=== PATIENT | female | born 1945 | race Caucasian/White ===

== ENCOUNTER 2017-06-20 09:40 | Outpatient (CLI) | payer MEDICARE, OTHER | END 2017-06-20 09:41 | LOC: LAB.WCP 09:40 | PROVIDERS: ATTEND Family Medicine | DX: N39.0 Urinary tract infection, site not specified (principal) | CPT/HCPCS: 87086 ==

== ENCOUNTER 2017-12-27 07:01 | Outpatient (CLI) | payer MEDICARE, OTHER ==
[2017-12-27 07:30] LABS: BASOPHILS % (AUTO) 0.2 %; EOSINOPHILS # (AUTO) 0.1 10^3/uL (0.0-0.7); EOSINOPHILS % (AUTO) 3.5 %; HGB - HEMOGLOBIN 13.7 g/dL (12.0-16.0); LYMPHOCYTES # (AUTO) 0.9 10^3/uL (1.5-3.5); LYMPHOCYTES % (AUTO) 26.4 %; MEAN CORPUSCULAR HEMOGLOBIN 30.9 pg (27.0-31.0); MEAN CORPUSCULAR HGB CONC 32.7 g/dL (32.0-36.0); MEAN CORPUSCULAR VOLUME 94.3 fL (81.0-99.0); MEAN PLATELET VOLUME 8.4 fL (7.9-10.8); MONOCYTES # (AUTO) 0.4 10^3/uL (0.0-1.0); NEUTROPHILS % (AUTO) 58.9 %; PLT - PLATELET COUNT 215 10^3/uL (130-450); RED BLOOD COUNT 4.44 10^6/uL (4.20-5.40); RED CELL DISTRIBUTION WIDTH 12.7 % (12.0-15.0); WHITE BLOOD COUNT 3.4 x10^3/uL (4.8-10.8)
[2017-12-27 07:49] LABS: ALBUMIN/GLOBULIN RATIO 1.4 (1.0-2.2); ALKALINE PHOSPHATASE 52 IU/L (42-121); ALT ALANINE AMINOTRANSFERASE 21 IU/L (10-60); AST ASPARTATE AMINOTRANSFERASE 25 IU/L (10-42); BILIRUBIN,TOTAL 1.2 mg/dL (0.2-1.0); BUN - BLOOD UREA NITROGEN 19 mg/dL (6-20); CALCIUM 8.9 mg/dL (8.5-10.3); CARBON DIOXIDE - CO2 26 mmol/L (21-32); CHLORIDE 104 mmol/L (101-111); CHOL/HDL RATIO 2.7 (<4.4); CHOLESTEROL 196 mg/dL; CREATININE 1.1 mg/dL (0.4-1.0); GFR - MDRD 49 (>89); GLUCOSE 95 mg/dL (70-100); HDL CHOLESTEROL 72 mg/dL; LDL CHOLESTEROL,CALCULATED 114 mg/dL; LDL/HDL RATIO 1.6 (<4.4); SODIUM 136 mmol/L (135-145); TOTAL PROTEIN 6.8 g/dL (6.7-8.2); VLDL CHOLESTEROL 10 mg/dL
== END 2017-12-27 07:02 | disposition home or self-care (01) ==
LOC: LAB 07:01
PROVIDERS: ATTEND Family Medicine
DX: E78.5 Hyperlipidemia, unspecified (principal); R03.0 Elevated blood-pressure reading, without diagnosis of hypertension
CPT/HCPCS: 36415; 80053; 80061; 83721; 85025

== ENCOUNTER 2018-01-14 08:35 | Outpatient (CLI) | payer MEDICARE, OTHER ==
--- NOTE | 2018-01-15 17:20 | Mammography Report ---
DIGITAL SCREENING MAMMOGRAM: 01/14/2018 CLINICAL INDICATION: A 72-year-old for screening. COMPARISON: 08/2014, 08/2012, 11/2006. TECHNIQUE: Routine CC and MLO projections were obtained of the breasts. FINDINGS: The breasts again demonstrate heterogeneously dense fibroglandular parenchyma bilaterally. A few punctate, typically benign calcifications are present. No suspicious masses, clustered microcalcifications, or regions of architectural distortion are identified. IMPRESSION: BENIGN FINDINGS. RECOMMENDATION: Routine annual screening unless otherwise clinically indicated. BIRADS category 2 benign findings. STANDARD QUALIFYING STATEMENTS 1. This examination was reviewed with the aid of Computed-Aided Detection (CAD). 2. A negative or benign imaging report should not delay biopsy if clinically suspicious findings are present. Consider surgical consultation if warranted. More than 5% of cancers are not identified by imaging. 3. Dense breasts may obscure an underlying neoplasm. TD: 01/15/2018 17:19
== END 2018-01-14 08:36 | disposition home or self-care (01) ==
LOC: DI 08:35
PROVIDERS: ATTEND Family Medicine
DX: Z12.31 Encounter for screening mammogram for malignant neoplasm of breast (principal)
CPT/HCPCS: 77067

== ENCOUNTER 2018-01-14 08:37 | Outpatient (CLI) | payer MEDICARE, OTHER ==
--- NOTE | 2018-01-15 13:00 | DEXA Report ---
DEXA SCAN: 01/14/2018 CLINICAL INDICATION: Postmenopausal. TECHNIQUE: Dual energy x-ray absorptiometry (DXA) was performed on a [employer] system. Regions measured are the AP spine, femoral neck, and, if needed, forearm. COMPARISON: None. In accordance with the International Society for Clinical Densitometry (ISCD) guidelines, data from previous exams may be reanalyzed using current recommendations and techniques. This is done to allow a more accurate basis for comparison with the current study. FINDINGS Data for the lumbar spine is as follows: REGION BMD (g/cm/cm) T-SCORE Z-SCORE L1 0.894 -2.0 0.0 L2 0.913 -2.4 -0.4 L3 1.033 -1.4 0.6 L4 1.050 -1.3 0.7 L1-L4 0.980 -1.7 0.3 NOTE: All evaluable vertebrae are used for classification. Data for the hip is as follows: REGION BMD (g/cm/cm) T-SCORE Z-SCORE Neck 0.782 -1.8 0.0 TOTAL 0.763 -1.9 -0.3 NOTE: The femoral neck or total proximal femur, whichever is lowest, is used for classification. IMPRESSION WHO CLASSIFICATION BASED ON THE INTERNATIONAL REFERENCE STANDARD IS OSTEOPENIA. FRACTURE RISK IS INCREASED. RECOMMENDATION: Patients with diagnosis of osteoporosis or osteopenia should have regular bone mineral density assessment. For those eligible for Medicare, routine testing is allowed once every 2 years. Testing frequency can be increased for patients who have rapidly progressing disease or for those who are receiving medical therapy to restore bone mass. COMMENT World Health Organization (WHO) definitions for osteoporosis and osteopenia: NORMAL BMD: T-score at 1.0 or higher, fracture risk is low. OSTEOPENIA BMD: T-score between 1.0 and -2.5, fracture risk is increased. OSTEOPOROSIS BMD: T-score at 2.5 or lower, fracture risk high. National Osteoporosis Foundation recommends: 1. Obtain adequate dietary calcium (at least 1200 mg per day) and vitamin D (400 -800 international units per day). 2. Participate, as appropriate, in regular weightbearing and muscle- strengthening exercise. 3. Avoid tobacco use and reduce alcohol and caffeine intake. 4. For more detailed information see the website at www.NOF.org. TD: 01/14/2018 11:36 [email or web address]
== END 2018-01-14 08:38 | disposition home or self-care (01) ==
LOC: DI 08:37
PROVIDERS: ATTEND Family Medicine
DX: M85.89 Other specified disorders of bone density and structure, multiple sites (principal)
CPT/HCPCS: 77080

== ENCOUNTER 2018-03-26 09:44 | Day surgery (SDC) | payer MEDICARE, OTHER ==
[2018-03-26] MEDS ORDERED: LACTATED RINGERS 1,000 ML IV ONE (09:55)
[2018-03-26] MEDS ORDERED: MIDAZOLAM 2 MG/2 ML VIAL IVP ONE (10:41)
[2018-03-26] MEDS ORDERED: fentaNYL 250 MCG/5 ML VIAL IVP ONE (10:41)
[2018-03-26 11:39] VITALS: BP 94/49
== END 2018-03-26 09:45 | disposition home or self-care (01) ==
LOC: SDS 09:44
PROVIDERS: ATTEND Surgery
PROC: 0DBN8ZX Excision of Sigmoid Colon, Via Natural or Artificial Opening Endoscopic, Diagnostic (ICD-10-PCS; principal; 2018-03-26 10:45)
DX: Z12.11 Encounter for screening for malignant neoplasm of colon (principal); D12.5 Benign neoplasm of sigmoid colon
CPT/HCPCS: 45380; J3010; J7120; 88305

== ENCOUNTER 2018-08-28 14:12 | Outpatient (CLI) | payer MEDICARE, OTHER ==
--- NOTE | 2018-08-28 16:41 | MRI Report ---
Reason: HIP JOINT PAIN, LEFT Procedure Date: 08/28/2018 Accession Number: [id number] / [id number] Procedure: MRI - Hip LT W/O CPT Code: FULL RESULT: EXAM: LEFT HIP MRI WITHOUT CONTRAST EXAM DATE: 08/28/2018 02:36 PM. CLINICAL HISTORY: Hip joint pain, left. COMPARISON: HIP 2 VIEW LT 08/12/2018 11:38 AM. TECHNIQUE: Multiplanar, multisequence T1-weighted and fluid-sensitive, small angwl-jr-peai sequences of the hip and large cyvbj-hs-apgv sequences of the pelvis without contrast. Other: None. FINDINGS: Bones and articular surfaces: Moderate cartilage thinning and fissuring at the anterosuperior aspect of the left hip joint with acetabular subchondral edema and tiny subchondral cyst formation. Small tear and degeneration at the anterosuperior left hip labrum. Small anterosuperior paralabral cyst formation approximately 4 x 8 x 12 mm. No evidence of acute fracture. Subchondral edema and subchondral cyst formation at the anterior acetabulum. Mild degenerative change in the left greater than right sacroiliac joint. At the superior margin of the left iliac wing there is an ill-defined area of increased T2 signal measuring approximately 1.6 x 0.5 x 0.9 cm. T1 fatty marrow signal appears maintained. No additional discrete bone lesions are seen. Pubic symphysis and right hip unremarkable. Musculotendinous structures: No evidence of significance muscle tear, tendinosis or bursitis. IMPRESSION: 1. Moderate left hip osteoarthritis. 2. Tear and degeneration at the anterosuperior left hip labrum with small paralabral cyst. 3. High T2 signal lesion at the left iliac weighing approximately 1.6 x 0.5 x 0.9 cm. Nonspecific. No additional lesions are seen. In the proper clinical setting, differential considerations include metastatic lesion or myeloma. Correlate clinically. If there is concern for metastatic disease, consider whole body bone scan to evaluate for any additional lesions. [facility] MUSCULOSKELETAL RADIOLOGY SECTION
== END 2018-08-28 14:13 | disposition home or self-care (01) ==
LOC: DI 14:12
PROVIDERS: ATTEND Family Medicine
DX: M16.12 Unilateral primary osteoarthritis, left hip (principal); S73.192A Other sprain of left hip, initial encounter; M24.852 Other specific joint derangements of left hip, not elsewhere classified; M89.9 Disorder of bone, unspecified

== ENCOUNTER 2018-09-06 08:52 | Outpatient (CLI) | payer MEDICARE, OTHER ==
--- NOTE | 2018-09-07 11:20 | Nuclear Medicine Report ---
Reason: ABNORMAL MAGNETIC RESONANCE IMAGING Procedure Date: 09/06/2018 Accession Number: [id number] / [id number] Procedure: NM - Bone Whole Body CPT Code: FULL RESULT: EXAM: BONE SCAN EXAM DATE: 09/06/2018 01:41 PM. CLINICAL HISTORY: Abnormal magnetic resonance imaging. COMPARISON: None. TECHNIQUE: Following the intravenous administration of 28.8 mCi of technetium 99m MDP, flow and soft tissue phase imaging obtained through the pelvis. Next, after an appropriate delay, a whole-body scan was performed in anterior and posterior projections. Site-specific spot views of the region of interest were obtained in various projections. FINDINGS: Exam Quality: Normal overall osseous radiotracer uptake. Physiological tracer uptake in bilateral collecting systems. Skull: No focal uptake. Thorax: No focal lesions in ribs or sternum. Pelvis: No abnormal flow or soft tissue activity in the pelvis or hips. On delays, small focus of mild increased uptake anteromedial left hip, likely degenerative. Bony structures otherwise unremarkable. Spine: Moderate activity at the L3-L4 disk level. IMPRESSION: 1. Mild degenerative changes anteromedial left hip. 2. No abnormal flow or soft tissue activity in the pelvis or hips. 3. Moderate degenerative disk disease L3-L4. [facility]
== END 2018-09-06 08:53 | disposition home or self-care (01) ==
LOC: DI 08:52
PROVIDERS: ATTEND Family Medicine
DX: R93.89 Abnormal findings on diagnostic imaging of other specified body structures (principal); M51.36 Other intervertebral disc degeneration, lumbar region; M16.12 Unilateral primary osteoarthritis, left hip
CPT/HCPCS: 36415; 78306; 81599; 84155; 84165

== ENCOUNTER 2018-09-06 13:05 | Outpatient (CLI) | payer MEDICARE, OTHER ==
[2018-09-09 20:19] LABS: ALBUMIN 4.1 g/dL (3.8-4.8); ALPHA 1 GLOBULIN 0.3 g/dL (0.2-0.3); ALPHA 2 GLOBULIN 0.7 g/dL (0.5-0.9); BETA 1 GLOBULIN 0.4 g/dL (0.4-0.6); BETA 2 GLOBULIN 0.3 g/dL (0.2-0.5); GAMMA GLOBULIN 1.2 g/dL (0.8-1.7)
== END 2018-09-06 13:06 | disposition home or self-care (01) ==
LOC: LAB 13:05
PROVIDERS: ATTEND Family Medicine
DX: R93.89 Abnormal findings on diagnostic imaging of other specified body structures (principal)
CPT/HCPCS: 36415; 81599; 84155; 84165

== ENCOUNTER 2018-11-28 14:45 | Outpatient (CLI) | payer MEDICARE, OTHER ==
[2018-11-28] MEDS ORDERED: GADOBUTROL 7.5 MMOL/7.5 ML VIAL ONE (15:04)
[2018-11-28] MEDS ORDERED: GADOBUTROL 7.5 MMOL/7.5 ML VIAL IVP ONE ×2 (16:25)
--- NOTE | 2018-11-29 11:05 | MRI Report ---
Reason: LESION OF PELVIC BONE Procedure Date: 11/28/2018 Accession Number: [id number] / [id number] Procedure: MRI - Pelvis W/WO CPT Code: FULL RESULT: EXAM: MRI PELVIS WITHOUT AND WITH CONTRAST EXAM DATE: 11/28/2018 04:22 PM. CLINICAL HISTORY: Lesion of pelvic bone. COMPARISON: Hip MRI 08/28/2018 and bone scan 09/06/2018. TECHNIQUE: Multiplanar, multisequence T1-weighted and fluid-sensitive sequences of the pelvis before and after administration of intravenous contrast. IV contrast: 6 mL Gadavist. Other: None. FINDINGS: Axial fluid sensitive sequences limited due to wrap artifact and superimposition of the hands. Bones: Ill-defined focus of fluid sensitive hyperintense signal with possible subtle T1 hypointense signal redemonstrated at the superior aspect left iliac bone measuring approximately 0.7 x 1.9 x 1.7 cm, similar. No gross enhancement in this region. Ill-defined focus of T1 isointense to hypointense on fluid sensitive hyperintense signal partially visualized in the medullary cavity left proximal femur subtrochanteric region. This measures approximately 1.5 x 1.3 x 2.0 cm. This is surrounded by rim of fat with fat saturation. This is best visualized on the sagittal sequence and partially visualized on the coronal sequence and extends outside the field of view on the axial postcontrast sequence. Possible subtle enhancement centrally. No fracture. Subtle reactive bone marrow edema at the bilateral greater trochanters, right greater than left. Lower Lumbar Spine: Mild degenerative disk and facet changes partially visualized. Small central disk protrusion at L4-L5 contributes to mild central canal stenosis. Sacroiliac Joints: Mild degenerative changes. No effusion or evidence of sacroiliitis. Right Hip: Minimal degenerative changes. Minimal joint fluid without enhancement. Left Hip: Mild degenerative changes. Minimal joint fluid without enhancement. Symphysis Pubis: Unremarkable. Musculature: No edema or fatty atrophy. Minimal tendinopathy of bilateral gluteus minimus and medius tendons. Mild bilateral hamstring tendinopathy, likely chronic. Pelvic Cavity: The visualized bowel, bladder, and reproductive organs are unremarkable. No lymphadenopathy. No free fluid in the pelvis. Other: The visualized sciatic nerves are unremarkable. Subcutaneous soft tissues unremarkable. IMPRESSION: 1. Ill-defined 1.9 cm fluid sensitive hyperintense lesion redemonstrated at the left iliac wing. No gross enhancement at the site. This is nonspecific and may be due to benign lesion such as hemangioma. Myelomatous lesion not completely excluded. Recommend correlate with laboratory values. Metastasis thought less likely. 2. Ill-defined 2 cm lesion partially visualized in the left proximal femur. Margin of fat suggestive of benign lesion such as intraosseous lipoma, hemangioma, or liposclerosing myxofibrous tumor. Malignant lesion thought less likely. 3. Mild degenerative changes lower lumbar spine, sacroiliac joints, and left hip. [facility] MUSCULOSKELETAL RADIOLOGY SECTION
== END 2018-11-28 14:46 | disposition home or self-care (01) ==
LOC: DI 14:45
DX: M89.9 Disorder of bone, unspecified (principal); M16.12 Unilateral primary osteoarthritis, left hip; M47.817 Spondylosis without myelopathy or radiculopathy, lumbosacral region
CPT/HCPCS: 72197; A9585

== ENCOUNTER 2019-03-12 16:13 | Outpatient (CLI) | payer MEDICARE, OTHER ==
--- NOTE | 2019-03-13 09:46 | Mammography Report ---
Reason: SCREENING MAMMO Procedure Date: 03/12/2019 Accession Number: [id number] / [id number] Procedure: KAREN - Screening Mammo w/Junior CPT Code: FULL RESULT: EXAM: Screening Mammo w/Junior DATE: 03/12/2019 4:35 PM CLINICAL HISTORY: Screening encounter. No reported risk factors. TECHNIQUE: (B) - Bilateral CC and MLO views were obtained. COMPARISON: 01/14/2018 through 09/05/2012. PARENCHYMAL PATTERN: (D) - The breast(s) demonstrate(s) heterogeneously dense fibroglandular parenchyma. FINDINGS: There are no suspicious masses, calcifications, or areas of distortion. IMPRESSION: Negative examination. BI-RADS category 1. RECOMMENDATION: (ANNUAL) - Recommend routine annual screening mammography. BI-RADS CATEGORY: (1) - Negative. STANDARD QUALIFYING STATEMENTS: 1. This examination was not reviewed with the aid of Computer-Aided Detection (CAD). 2. A negative or benign imaging report should not preclude biopsy if clinically suspicious findings are present. 3. Dense breasts may obscure an underlying neoplasm. 4. This examination was reviewed with the aid of 3D breast imaging (tomosynthesis).
== END 2019-03-12 16:14 | disposition home or self-care (01) ==
LOC: DI 16:13
DX: Z12.31 Encounter for screening mammogram for malignant neoplasm of breast (principal)
CPT/HCPCS: 77063; 77067

== ENCOUNTER 2019-05-09 09:18 | Emergency (ER) | payer MEDICARE, OTHER ==
[2019-05-09] MEDS ORDERED: SODIUM CHLORIDE 0.9% 1,000 ML IV ONE (09:32)
--- NOTE | 2019-05-09 09:37 | ED Physician Documentation ---
History of Present Illness - Stated complaint Stated Complaint: LT ARM PAIN/DIZNESS/WEAKNESS - Chief complaint Chief Complaint: General - History obtained from History obtained from: Patient - Additonal information Additional information: The patient is a 73-year-old female who presents with lightheadedness and general weakness that started about 1 hour prior to arrival while eating breakfast. She reports transient numbness in her left arm, lasting for about 10 minutes before resolving spontaneously. She denies chest pain, shortness of breath, nausea or vomiting. She denies history of the same symptoms in the past. However she does state the lightheadedness and general weakness feels similar to an episode of hypoglycemia. She is not diabetic, but does have a history of episodic hypoglycemia. Review of Systems Constitutional: denies: Fever, Myalgias, Sweats, Other (Lightheadedness.) Eyes: denies: Decreased vision Ears: denies: Tinnitus/ringing Nose: denies: Congestion Throat: denies: Sore throat Cardiac: denies: Chest pain / pressure, Palpitations Respiratory: denies: Dyspnea, Cough GI: denies: Abdominal Pain, Nausea, Vomiting : denies: Dysuria Skin: denies: Rash Musculoskeletal: denies: Neck pain, Back pain, Extremity swelling Neurologic: denies: Headache PD PAST MEDICAL HISTORY - Past Medical History Cardiovascular: None Respiratory: None Endocrine/Autoimmune: None GI: None : None HEENT: Glaucoma Psych: None Musculoskeletal: None Derm: None - Past Surgical History Ortho: Carpal Tunnel surgery - Present Medications Home Medications: Ambulatory Orders Medication Instructions Recorded Confirmed Latanoprost 0.005% Ophth Drops 1 drops OPTH QPM 03/25/18 03/25/18 [Xalatan Ophth Drops] - Allergies Allergies/Adverse Reactions: Allergies Allergy/AdvReac Type Severity Reaction Status Date / Time No Known Drug Allergies Allergy Verified 05/09/19 09:26 PD ED PE NORMAL - Vitals Vital signs reviewed: Yes (Systolic hypertension) - General General: Alert and oriented X 3, Well developed/nourished - HEENT HEENT: Atraumatic, Pharynx benign - Neck Neck: No adenopathy, No JVD - Cardiac Cardiac: RRR, No murmur - Respiratory Respiratory: No respiratory distress, Clear bilaterally - Abdomen Abdomen: Soft, Non tender - Back Back: No CVA TTP - Derm Derm: No rash - Extremities Extremities: No edema, No calf tenderness / cord - Neuro Neuro: Alert and oriented X 3, No motor deficit, No sensory deficit, Normal speech Results - Vitals Vitals: Vital Signs - 24 hr 05/09/19 05/09/19 09:23 11:12 Temperature 35.9 C L 36.4 C L Heart Rate 62 52 L Respiratory 14 18 Rate Blood Pressure 161/83 H 144/72 H O2 Saturation 100 100 Oxygen O2 Source Room air - EKG (time done) 09:22 Rate: Rate (enter#) (63) Rhythm: NSR [place]: Anterior hemiblock Intervals: Normal [place] QRS: Low voltage Ischemia: Other (Borderline T-wave flattening inferior leads II, III, aVF.). No: ST elevation c/w ischemia - Labs Labs: Laboratory Tests 05/09/19 05/09/19 05/09/19 09:49 09:49 09:49 WBC 5.1 RBC 4.44 Hgb 14.1 Hct 42.9 MCV 96.6 MCH 31.8 H MCHC 32.9 RDW 12.0 Plt Count 200 MPV 9.9 Neut # (Auto) 3.3 Lymph # (Auto) 1.0 L [place] # (Auto) 0.5 Eos # (Auto) 0.1 Baso # (Auto) 0.1 Absolute Nucleated RBC 0.00 Nucleated RBC % 0.0 Sodium 138 Potassium 3.9 Chloride 102 Carbon Dioxide 25 Anion Gap 11.0 BUN 18 Creatinine 1.0 Estimated GFR (MDRD) 55 L Glucose 113 H Calcium 9.0 Total Bilirubin 1.6 H AST 26 ALT 17 Alkaline Phosphatase 49 Troponin I < 0.04 Total Protein 7.1 Albumin 4.0 Globulin 3.1 Albumin/Globulin Ratio 1.3 Lipase 35 Urine Color Urine Clarity Urine pH Ur Specific [place] Urine Protein Urine Glucose (UA) Urine Ketones Urine Occult Blood Urine Nitrite Urine Bilirubin Urine Urobilinogen Ur Leukocyte Esterase Ur Microscopic Review Urine Culture Comments 05/09/19 10:08 WBC RBC Hgb Hct MCV MCH MCHC RDW Plt Count MPV Neut # (Auto) Lymph # (Auto) [place] # (Auto) Eos # (Auto) Baso # (Auto) Absolute Nucleated RBC Nucleated RBC % Sodium Potassium Chloride Carbon Dioxide Anion Gap BUN Creatinine Estimated GFR (MDRD) Glucose Calcium Total Bilirubin AST ALT Alkaline Phosphatase Troponin I Total Protein Albumin Globulin Albumin/Globulin Ratio Lipase Urine Color YELLOW Urine Clarity CLEAR Urine pH 6.5 Ur Specific [place] <=1.005 Urine Protein NEGATIVE Urine Glucose (UA) NEGATIVE Urine Ketones NEGATIVE Urine Occult Blood NEGATIVE Urine Nitrite NEGATIVE Urine Bilirubin NEGATIVE Urine Urobilinogen 0.2 (NORMAL) Ur Leukocyte Esterase NEGATIVE Ur Microscopic Review NOT INDICATED Urine Culture Comments NOT INDICATED PD MEDICAL DECISION MAKING - ED course Complexity details: reviewed results, re-evaluated patient, considered differential, d/w patient, d/w family ED course: The cause of the patient's transient dizziness is unclear at this time. She is asymptomatic while in the emergency department, her EKG reveals no acute ischemic abnormality, and troponin is normal. Her CBC, chemistry panel, and urinalysis are unremarkable. Treatment in the emergency department included administration of normal saline 1 L IV. She remained totally asymptomatic. I discussed with her and her the results of her work-up, outpatient follow-up, as well as potentially worrisome signs or symptoms that should prompt reevaluation in the emergency department. Departure - Departure Disposition: 01 Home, Self Care Clinical Impression: Dizziness Condition: Stable Instructions: ED Dizziness [facility]O Follow-Up: Jamil Camacho DO [Primary Care Provider] - Comments: Drink plenty of fluids. Follow-up with your primary physician within 1 week. Call to schedule an appointment. Return to the emergency department if you develop recurrent dizziness or lightheadedness, chest pain, shortness of breath, or otherwise worsening symptoms. Discharge Date/Time: 05/09/19 11:13
[2019-05-09 09:57] LABS: BASOPHILS # (AUTO) 0.1 10^3/uL (0.0-0.1); BASOPHILS % (AUTO) 1.2 %; EOSINOPHILS # (AUTO) 0.1 10^3/uL (0.0-0.7); EOSINOPHILS % (AUTO) 2.8 %; HGB - HEMOGLOBIN 14.1 g/dL (12.0-16.0); LYMPHOCYTES % (AUTO) 20.4 %; MEAN CORPUSCULAR HEMOGLOBIN 31.8 pg (27.0-31.0); MEAN CORPUSCULAR HGB CONC 32.9 g/dL (32.0-36.0); MEAN CORPUSCULAR VOLUME 96.6 fL (81.0-99.0); MEAN PLATELET VOLUME 9.9 fL (7.9-10.8); MONOCYTES # (AUTO) 0.5 10^3/uL (0.0-1.0); MONOCYTES % (AUTO) 10.1 %; NEUTROPHILS # (AUTO) 3.3 10^3/uL (1.5-6.6); NEUTROPHILS % (AUTO) 65.3 %; PLT - PLATELET COUNT 200 10^3/uL (130-450); RED BLOOD COUNT 4.44 10^6/uL (4.20-5.40); WHITE BLOOD COUNT 5.1 x10^3/uL (4.8-10.8)
[2019-05-09 10:11] LABS: ALBUMIN/GLOBULIN RATIO 1.3 (1.0-2.2); BILIRUBIN,TOTAL 1.6 mg/dL (0.2-1.0); TOTAL PROTEIN 7.1 g/dL (6.7-8.2)
[2019-05-09 10:16] LABS: BILIRUBIN,URINE NEGATIVE (NEGATIVE); GLUCOSE, URINE (UA) NEGATIVE (NEGATIVE); KETONES,URINE (UA) NEGATIVE (NEGATIVE); LEUKOCYTE ESTERASE, URINE NEGATIVE (NEGATIVE); NITRITE,URINE NEGATIVE (NEGATIVE); OCCULT BLOOD,URINE NEGATIVE (NEGATIVE); PH,URINE 6.5 PH (5.0-7.5); PROTEIN,URINE NEGATIVE (NEGATIVE); UROBILINOGEN,URINE 0.2 (NORMAL) E.U./dL (NORMAL)
[2019-05-09 10:18] LABS: CLARITY,URINE CLEAR (CLEAR)
[2019-05-09 11:12] VITALS: BP 144/72
== END 2019-05-09 11:13 | disposition home or self-care (01) ==
LOC: ED 09:18
DX: R42 Dizziness and giddiness (principal)
CPT/HCPCS: 36415; 80053; 81001; 81003; 83690; 84484; 85025; 87086; 93005; 96360; 99282

== ENCOUNTER 2019-10-06 08:08 | Outpatient (CLI) | payer MEDICARE, OTHER ==
[2019-10-06 08:44] LABS: BASOPHILS # (AUTO) 0.1 10^3/uL (0.0-0.1); BASOPHILS % (AUTO) 2.2 %; EOSINOPHILS # (AUTO) 0.2 10^3/uL (0.0-0.7); EOSINOPHILS % (AUTO) 5.5 %; HGB - HEMOGLOBIN 14.1 g/dL (12.0-16.0); LYMPHOCYTES # (AUTO) 1.2 10^3/uL (1.5-3.5); LYMPHOCYTES % (AUTO) 28.7 %; MEAN CORPUSCULAR HEMOGLOBIN 31.1 pg (27.0-31.0); MEAN CORPUSCULAR HGB CONC 32.2 g/dL (32.0-36.0); MEAN CORPUSCULAR VOLUME 96.5 fL (81.0-99.0); MEAN PLATELET VOLUME 10.2 fL (7.9-10.8); MONOCYTES # (AUTO) 0.5 10^3/uL (0.0-1.0); NEUTROPHILS # (AUTO) 2.1 10^3/uL (1.5-6.6); NEUTROPHILS % (AUTO) 51.1 %; PLT - PLATELET COUNT 247 10^3/uL (130-450); RED BLOOD COUNT 4.54 10^6/uL (4.20-5.40); RED CELL DISTRIBUTION WIDTH 12.1 % (12.0-15.0)
[2019-10-06 09:04] LABS: ALBUMIN 4.3 g/dL (3.2-5.5); ALBUMIN/GLOBULIN RATIO 1.3 (1.0-2.2); ALKALINE PHOSPHATASE 55 IU/L (42-121); ALT ALANINE AMINOTRANSFERASE 19 IU/L (10-60); AST ASPARTATE AMINOTRANSFERASE 24 IU/L (10-42); BILIRUBIN,TOTAL 1.4 mg/dL (0.2-1.0); BUN - BLOOD UREA NITROGEN 16 mg/dL (6-20); CALCIUM 9.3 mg/dL (8.5-10.3); CARBON DIOXIDE - CO2 29 mmol/L (21-32); CHLORIDE 104 mmol/L (101-111); CHOL/HDL RATIO 2.9 (<4.4); CHOLESTEROL 228 mg/dL; CREATININE 0.9 mg/dL (0.4-1.0); GFR - MDRD 62 (>89); GLUCOSE 104 mg/dL (70-100); HDL CHOLESTEROL 79 mg/dL; LDL CHOLESTEROL,CALCULATED 133 mg/dL; LDL/HDL RATIO 1.7 (<4.4); SODIUM 140 mmol/L (135-145); TOTAL PROTEIN 7.6 g/dL (6.7-8.2); VLDL CHOLESTEROL 16 mg/dL
[2019-10-07 12:26] LABS: HEPATITIS C ANTIBODY NON-REACTIVE (NON-REACTIVE)
== END 2019-10-06 08:09 | disposition home or self-care (01) ==
LOC: LAB 08:08
PROVIDERS: ATTEND Family Medicine
DX: M89.9 Disorder of bone, unspecified (principal); E78.5 Hyperlipidemia, unspecified; Z11.59 Encounter for screening for other viral diseases
CPT/HCPCS: 36415; 80053; 80061; 83721; 85025; 86803

== ENCOUNTER 2019-12-23 08:00 | Outpatient (CLI) | payer MEDICARE, OTHER | END 2019-12-23 23:59 | disposition home or self-care (01) | LOC: LAB.R 08:00 | PROVIDERS: ATTEND Nurse Practitioner Family | DX: R30.0 Dysuria (principal) | CPT/HCPCS: 87086; 87181 ==

== ENCOUNTER 2020-12-08 07:29 | Outpatient (CLI) | payer MEDICARE, BC ==
[2020-12-08 07:50] LABS: BASOPHILS # (AUTO) 0.1 10^3/uL (0.0-0.1); BASOPHILS % (AUTO) 2.1 %; EOSINOPHILS # (AUTO) 0.4 10^3/uL (0.0-0.7); EOSINOPHILS % (AUTO) 9.9 %; HGB - HEMOGLOBIN 13.9 g/dL (12.0-16.0); LYMPHOCYTES # (AUTO) 1.1 10^3/uL (1.5-3.5); LYMPHOCYTES % (AUTO) 28.1 %; MEAN CORPUSCULAR HEMOGLOBIN 32.4 pg (27.0-31.0); MEAN CORPUSCULAR HGB CONC 33.3 g/dL (32.0-36.0); MEAN CORPUSCULAR VOLUME 97.2 fL (81.0-99.0); MEAN PLATELET VOLUME 9.8 fL (7.9-10.8); MONOCYTES # (AUTO) 0.4 10^3/uL (0.0-1.0); MONOCYTES % (AUTO) 11.2 %; NEUTROPHILS # (AUTO) 1.8 10^3/uL (1.5-6.6); NEUTROPHILS % (AUTO) 48.4 %; PLT - PLATELET COUNT 229 10^3/uL (130-450); RED BLOOD COUNT 4.29 10^6/uL (4.20-5.40); RED CELL DISTRIBUTION WIDTH 12.2 % (12.0-15.0); WHITE BLOOD COUNT 3.7 x10^3/uL (4.8-10.8)
[2020-12-08 08:16] LABS: ALBUMIN 4.1 g/dL (3.2-5.5); ALBUMIN/GLOBULIN RATIO 1.4 (1.0-2.2); ALKALINE PHOSPHATASE 54 IU/L (42-121); ALT ALANINE AMINOTRANSFERASE 17 IU/L (10-60); AST ASPARTATE AMINOTRANSFERASE 21 IU/L (10-42); BILIRUBIN,TOTAL 0.9 mg/dL (0.2-1.0); BUN - BLOOD UREA NITROGEN 18 mg/dL (6-20); CALCIUM 8.9 mg/dL (8.5-10.3); CARBON DIOXIDE - CO2 29 mmol/L (21-32); CHLORIDE 100 mmol/L (101-111); CHOLESTEROL 218 mg/dL; GLUCOSE 97 mg/dL (70-100); HDL CHOLESTEROL 72 mg/dL; LDL CHOLESTEROL,CALCULATED 136 mg/dL; LDL/HDL RATIO 1.9 (<4.4); VLDL CHOLESTEROL 10 mg/dL
== END 2020-12-08 07:30 | disposition home or self-care (01) ==
LOC: LAB 07:29
PROVIDERS: ATTEND Physician Assistant Medical
DX: E78.5 Hyperlipidemia, unspecified (principal); M16.12 Unilateral primary osteoarthritis, left hip
CPT/HCPCS: 36415; 80053; 80061; 83721; 85025

== ENCOUNTER 2022-06-15 10:29 | Emergency (ER) | payer MEDICARE, OTHER ==
[2022-06-15 11:38] LABS: BASOPHILS # (AUTO) 0.1 10^3/uL (0.0-0.1); BASOPHILS % (AUTO) 1.5 %; EOSINOPHILS # (AUTO) 0.2 10^3/uL (0.0-0.7); EOSINOPHILS % (AUTO) 2.9 %; HCT - HEMATOCRIT 44.7 % (37.0-47.0); LYMPHOCYTES # (AUTO) 1.1 10^3/uL (1.5-3.5); LYMPHOCYTES % (AUTO) 18.9 %; MEAN CORPUSCULAR HEMOGLOBIN 32.1 pg (27.0-31.0); MEAN CORPUSCULAR HGB CONC 33.6 g/dL (32.0-36.0); MEAN CORPUSCULAR VOLUME 95.5 fL (81.0-99.0); MEAN PLATELET VOLUME 9.7 fL (7.9-10.8); MONOCYTES # (AUTO) 0.6 10^3/uL (0.0-1.0); NEUTROPHILS # (AUTO) 3.9 10^3/uL (1.5-6.6); NEUTROPHILS % (AUTO) 66.5 %; PLT - PLATELET COUNT 235 10^3/uL (130-450); RED BLOOD COUNT 4.68 10^6/uL (4.20-5.40); WHITE BLOOD COUNT 5.8 x10^3/uL (4.8-10.8)
[2022-06-15 11:53] LABS: ALBUMIN 4.5 g/dL (3.2-5.5); ALBUMIN/GLOBULIN RATIO 1.3 (1.0-2.2); BILIRUBIN,TOTAL 1.2 mg/dL (0.2-1.0); CALCIUM 9.8 mg/dL (8.5-10.3); CREATININE 0.9 mg/dL (0.4-1.0); POTASSIUM 5.2 mmol/L (3.5-5.0); TOTAL PROTEIN 7.9 g/dL (6.7-8.2)
--- NOTE | 2022-06-15 11:59 | XRAY Report ---
PROCEDURE: Chest 1 View X-Ray INDICATIONS: Chest Pain TECHNIQUE: One view of the chest was acquired. COMPARISON: None FINDINGS: Surgical changes and devices: None. Lungs and pleura: No pleural effusions or pneumothorax. Lungs are clear. Mediastinum: Mediastinal contours appear normal. Heart size is normal. Bones and chest wall: No suspicious bony lesions. Overlying soft tissues appear unremarkable. IMPRESSION: No acute pulmonary process. Reviewed by: Lavonne Snow MD on 06/15/2022 11:58 AM PDT Approved by: Lavonne Snow MD on 06/15/2022 11:58 AM PDT Station ID: [id number]
--- NOTE | 2022-06-15 13:47 | ED Physician Documentation ---
History of Present Illness - Stated complaint Stated Complaint: DIZZINESS - Chief complaint Chief Complaint: General - Additonal information Additional information: 76-year-old female presents emergency department for evaluation of feeling in termittently lightheaded, dizzy fatigued. She states that she has been losing weight over the last few months. She did follow-up with her primary care doctor and he ordered routine screening labs. They called her back and told her that there may be a problem with her thyroid and arranged a follow-up visit for June 28. Patient has also been dealing with severe and significant illness in her sister as well as some job stressors. She reports that she often feels lightheaded and dizzy during rest or even with activity. But she is not having any chest pain or shortness of air. She is a non-smoker. Very active and healthy otherwise. Swims every day. Takes 10 mg of lisinopril daily. Review of Systems Constitutional: reports: Fatigue, Weight Loss. denies: Fever, Chills Eyes: reports: Reviewed and negative Nose: reports: Reviewed and negative Throat: reports: Reviewed and negative Cardiac: reports: Reviewed and negative Respiratory: reports: Reviewed and negative GI: reports: Reviewed and negative : reports: Reviewed and negative Skin: reports: Reviewed and negative Musculoskeletal: reports: Reviewed and negative Neurologic: reports: Near syncope. denies: Focal weakness, Numbness, Syncope, Seizure, Confused, Headache, Head injury PD PAST MEDICAL HISTORY - Past Medical History Cardiovascular: None Respiratory: None Endocrine/Autoimmune: None GI: None : None HEENT: Glaucoma Psych: None Musculoskeletal: None Derm: None - Past Surgical History Ortho: Carpal Tunnel surgery - Present Medications Home Medications: Ambulatory Orders Medication Instructions Recorded Confirmed Latanoprost 0.005% Ophth Drops 1 drops OPTH QPM 03/25/18 03/25/18 [Xalatan Ophth Drops] - Allergies Allergies/Adverse Reactions: Allergies Allergy/AdvReac Type Severity Reaction Status Date / Time No Known Drug Allergies Allergy Verified 06/15/22 10:47 PD ED PE NORMAL - General General: Alert and oriented X 3, No acute distress, Well developed/nourished - HEENT HEENT: Atraumatic, Moist mucous membranes - Neck Neck: Supple, no meningeal sign, No adenopathy - Cardiac Cardiac: RRR, No murmur - Respiratory Respiratory: No respiratory distress, Clear bilaterally - Abdomen Abdomen: Normal bowel sounds, Soft, Non tender - Derm Derm: Normal color, Warm and dry, No rash - Extremities Extremities: No deformity, No tenderness to palpate, Normal ROM s pain - Neuro Neuro: Alert and oriented X 3, 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 Eye Opening: Spontaneous Motor: Obeys Commands Verbal: Oriented GCS Score: 15 Results - Vitals Vitals: Vital Signs - 24 hr 06/15/22 10:44 Temperature 36.4 C L Heart Rate 65 Respiratory 16 Rate Blood Pressure 177/85 H O2 Saturation 98 Oxygen O2 Source Room air - EKG (time done) 1320 Rate: Rate (enter#) (57) Rhythm: NSR [place]: LAD Intervals: Normal [place] QRS: Low voltage Ischemia: Normal ST segments Compare to prior EKG: Old EKG unavailable Computer interpretation: Agree with computer - Labs Labs: Laboratory Tests 06/15/22 06/15/22 06/15/22 11:31 11:31 11:31 WBC 5.8 RBC 4.68 Hgb 15.0 Hct 44.7 MCV 95.5 MCH 32.1 H MCHC 33.6 RDW 12.0 Plt Count 235 MPV 9.7 Neut # (Auto) 3.9 Lymph # (Auto) 1.1 L [place] # (Auto) 0.6 Eos # (Auto) 0.2 Baso # (Auto) 0.1 Absolute Nucleated RBC 0.00 Nucleated RBC % 0.0 Sodium 135 Potassium 5.2 H Chloride 98 L Carbon Dioxide 29 Anion Gap 8.0 BUN 16 Creatinine 0.9 Estimated GFR (MDRD) 61 L Glucose 97 Calcium 9.8 Total Bilirubin 1.2 H AST 23 ALT 20 Alkaline Phosphatase 49 Troponin I High Sens 5.0 Total Protein 7.9 Albumin 4.5 Globulin 3.4 Albumin/Globulin Ratio 1.3 Lipase 32 - Rads (name of study) cxr Radiology: Final report received (No acute cardiopulmonary process) PD MEDICAL DECISION MAKING - ED course Complexity details: reviewed results, considered differential, d/w patient ED course: 76-year-old female presents emergency department for evaluation of intermittent feelings of feeling lightheaded, dizzy. Also reporting recent weight loss. No chest pain or shortness of air. She is also been fatigued and had some weight loss. She had routine screening labs completed last week with her doctor I was told that she may have a thyroid disorder. In my review of these labs I do notice a normal TSH number. Here in the emergency department her cardiopulmonary neurological and cerebellar exam are entirely unremarkable and normal. Screening labs today were also unremarkable. Her EKG is nonischemic. Chest x-ray without acute focal opacity. Given the well-appearing exam,Lack of abdominal tenderness, no findings of orthostasis on vital signs, normal neurological exam advanced imaging was deferred. Patient is scheduled to follow-up with her primary care provider next week. I have advised the patient that she may benefit from a Holter monitor to evaluate for the possibility of PACs or PVCs as the cause of feeling lightheaded or dizzy. She may also benefit from further evaluation of her thyroid value with a T4. She could benefit from referral for echo stress test or cardiogram. Departure - Departure Disposition: 01 Home, Self Care Clinical Impression: Light-headed feeling, Weight loss Condition: Stable Record reviewed to determine appropriate education?: Yes Comments: Bonnie santoro are seen today in the emergency department because you have recently had some unexpected weight loss, you have been feeling lightheaded and dizzy as well as fatigued. Your primary care provider obtain screening labs last week. My evaluation of your TSH is that it is a normal value. However a further evaluation of your thyroid function such as with a T4 or T3 value can be helpful in determining if you have thyroid dysfunction. Here in the emergency department your screening chest x-ray and EKG were entirely normal. Your blood count and electrolytes were also today without any worrisome findings. You may benefit from further evaluation of your symptoms with a Holter monitor. Sometimes patients can have frequent PACs or PVCs that can cause the feelings of lightheadedness or dizziness. You may also benefit from referral to cardiology for echocardiogram or stress test.
[2022-06-15 14:13] VITALS: BP 120/59
== END 2022-06-15 14:24 | disposition home or self-care (01) ==
LOC: ED 10:29
DX: R42 Dizziness and giddiness (principal); R53.83 Other fatigue; R63.4 Abnormal weight loss
CPT/HCPCS: 36415; 80053; 83690; 84484; 85025; 93005; 99283; 99284

== ENCOUNTER 2022-06-21 10:55 | Outpatient (CLI) | payer MEDICARE, OTHER ==
--- NOTE | 2022-06-21 15:59 | DEXA Report ---
PROCEDURE: Dexa Spine and/or Hip INDICATIONS: POST MENOPAUSAL TECHNIQUE: Dual energy x-ray absorptiometry (DXA) was performed on a [employer] System. Regions measur ed are the AP Spine, femoral neck, and if needed forearm. COMPARISON: None. FINDINGS: Lumbar Spine: Bone Mineral Density 1.1 g/cm/cm,T score -1.2, osteopenia Left Hip: Bone Mineral Density 0.72 g/cm/cm,T score -2.3, osteopenia Impression: Osteopenia of the lumbar spine and left hip. Patients with diagnosis of osteoporosis or osteopenia should have regular bone mineral density assess ment. For those eligible for Medicare, routine testing is allowed once every 2 years. Testing frequ ency can be increased for patients who have rapidly progressing disease or for those who are receivin g medical therapy to restore bone mass. Reviewed by: Daniel Rondon MD on 06/21/2022 3:58 PM PDT Approved by: Daniel Rondon MD on 06/21/2022 3:58 PM PDT Station ID: [id number]
== END 2022-06-21 10:56 | disposition home or self-care (01) ==
LOC: DI 10:55
PROVIDERS: ATTEND Family Medicine
DX: M85.89 Other specified disorders of bone density and structure, multiple sites (principal); Z78.0 Asymptomatic menopausal state

== ENCOUNTER 2022-06-21 10:56 | Outpatient (CLI) | payer MEDICARE, OTHER ==
--- NOTE | 2022-06-22 10:36 | Mammography Report ---
BILATERAL DIGITAL SCREENING MAMMOGRAM 3D/2D: 06/21/2022 CLINICAL: Routine screening. Comparison is made to exams dated: 03/12/2019 mammogram, 01/14/2018 mammogram, 09/11/2014 mammogram, a nd 09/01/2014 mammogram - [facility]. There are scattered areas of fibroglandular density in both breasts (category b / 25%-50% glandular t issue). No significant masses, calcifications, or other findings are seen in either breast. There has been no significant interval change. IMPRESSION: NEGATIVE There is no mammographic evidence of malignancy. A 1 year screening mammogram is recommended. Based on the Tyrer Cuzick model (a risk assessment model) the patients lifetime risk is 3.7% and her 10 year risk is 3.4%. According to the ACR, ACS, and NCCN guidelines, an annual breast MRI exam murray g with mammogram is recommended if the patients lifetime risk is 20% or greater. This exam was interpreted at Station ID: [id number]. NOTE: For mammograms, a report in lay terms will be sent to the patient. Approximately 15% of breast malignancies will not be visualized mammographically. In the management of a palpable breast mass, a negative mammogram must not discourage biopsy of a clinically suspicious lesion. Electronically Signed By: Fredy Bueno M.D., jr/claudia:06/21/2022 13:00:51 ACR BI-RADS Category 1: Negative 3341F PARENCHYMAL PATTERN: (A) - The breast(s) demonstrate(s) scattered fibroglandular densities. BI-RADS CATEGORY: (1) - 1 RECOMMENDATION: (ANNUAL) - Recommend routine annual screening mammography. [id number] 1 year screening LATERALITY: (B)
== END 2022-06-21 10:57 | disposition home or self-care (01) ==
LOC: DI 10:56
PROVIDERS: ATTEND Family Medicine
DX: Z12.31 Encounter for screening mammogram for malignant neoplasm of breast (principal)

== ENCOUNTER 2022-08-04 14:26 | Outpatient (CLI) | payer MEDICARE, OTHER | END 2022-08-04 14:27 | disposition home or self-care (01) | LOC: MAC.MOP 14:26 | PROVIDERS: ATTEND Family Medicine | DX: R42 Dizziness and giddiness (principal) | CPT/HCPCS: 93242 ==

== ENCOUNTER → 2022-08-21 | Outpatient (CLI) | payer MEDICARE, OTHER | LOC: MAC.MOP 10:30 | PROVIDERS: ATTEND Physician Assistant Medical | DX: I49.1 Atrial premature depolarization (principal); I47.1 Supraventricular tachycardia; I49.3 Ventricular premature depolarization | CPT/HCPCS: 93244 ==

== ENCOUNTER 2023-06-21 12:44 | Outpatient (CLI) | payer MEDICARE, OTHER ==
[2023-06-21] MEDS ORDERED: BARIUM SULFATE 450 ML BOTTLE PO ONE (15:05)
[2023-06-21] MEDS ORDERED: iohexoL-300 100 ML VIAL IVP ONE (15:05)
--- NOTE | 2023-06-21 15:46 | CT Report ---
PROCEDURE: ABDOMEN/PELVIS W INDICATIONS: WEIGHT LOSS CONTRAST: 100mL Omni 300 TECHNIQUE: After the administration of oral and intravenous contrast, 5 mm thick sections acquired from the diap hragms to the symphysis. 5 mm thick coronal and sagittal reformats were acquired. For radiation dos e reduction, the following was used: automated exposure control, adjustment of mA and/or kV accordin g to patient size. COMPARISON: None FINDINGS: Image quality: Excellent. Lung bases and heart: Unremarkable. Liver: No solid mass. Gallbladder and biliary tree: No radiopaque stones or wall thickening. No biliary dilation. Spleen: No splenomegaly. Pancreas: No pancreatic ductal dilation. Adrenals: No adrenal nodule. Kidneys and ureters: No hydronephrosis. No renal cystic lesion which requires follow up. No solid mas s. Left renal simple cyst. Bowel and peritoneum: Patulous and fluid-filled distal esophagus. No bowel distension. No pathologic free fluid. Diverticulosis without evidence of diverticulitis. Lymph nodes: No central or retroperitoneal adenopathy. Vessels: No infrarenal aortic aneurysm. PELVIS Reproductive organs: Unremarkable. Bladder: No abnormal wall thickening, accounting for underdistension. Pelvic lymph nodes: No pelvic adenopathy by size criteria. Bones: No aggressive osseous abnormality. Anterolisthesis of L3 on L4. Decreased osseous mineralization. Other: No significant ventral or inguinal hernia. IMPRESSION: 1.No cause for patient's symptoms is identified. No intra-abdominal masses or acute abnormalities are identified. 2.Diverticulosis without evidence of acute diverticulitis. Reviewed by: Mario Posada MD on 06/21/2023 3:45 PM PDT Approved by: Mario Posada MD on 06/21/2023 3:45 PM PDT Station ID: [id number]
== END 2023-06-21 12:45 | disposition home or self-care (01) ==
LOC: DI 12:44
PROVIDERS: ATTEND Family Medicine
DX: R63.4 Abnormal weight loss (principal); M54.50 Low back pain, unspecified; R10.9 Unspecified abdominal pain; K57.90 Diverticulosis of intestine, part unspecified, without perforation or abscess without bleeding
CPT/HCPCS: 74177; A9270; Q9967

== ENCOUNTER 2023-09-24 13:37 | Outpatient (CLI) | payer MEDICARE, OTHER ==
[2023-09-24 14:09] LABS: CALCIUM 9.7 mg/dL (8.5-10.3); CREATININE 0.9 mg/dL (0.6-1.3)
== END 2023-09-24 13:38 | disposition home or self-care (01) ==
LOC: LAB 13:37
PROVIDERS: ATTEND Internal Medicine
DX: I10 Essential (primary) hypertension (principal)
CPT/HCPCS: 36415; 80048

== ENCOUNTER 2023-12-31 16:16 | Outpatient (CLI) | payer MEDICARE, OTHER ==
[2023-12-31 16:55] LABS: ALBUMIN 4.3 g/dL (3.2-5.5); ALBUMIN/GLOBULIN RATIO 1.5 (1.0-2.2); BILIRUBIN,TOTAL 0.8 mg/dL (0.2-1.0); CALCIUM 9.5 mg/dL (8.5-10.3); CREATININE 0.9 mg/dL (0.6-1.3); POTASSIUM 3.7 mmol/L (3.5-4.5); TOTAL PROTEIN 7.2 g/dL (6.4-8.9)
[2023-12-31 17:13] LABS: ESTIMATED AVERAGE GLUCOSE 114 mg/dL (70-100); HEMOGLOBIN A1c% 5.6 % (4.27-6.07)
== END 2023-12-31 16:17 | disposition home or self-care (01) ==
LOC: LAB 16:16
PROVIDERS: ATTEND Internal Medicine
DX: I10 Essential (primary) hypertension (principal); R73.9 Hyperglycemia, unspecified
CPT/HCPCS: 36415; 80053; 83036

== ENCOUNTER 2024-05-16 16:18 | Outpatient (CLI) | payer MEDICARE, OTHER ==
[2024-05-16 16:37] LABS: BASOPHILS % (AUTO) 0.8 %; EOSINOPHILS # (AUTO) 0.1 10^3/uL (0.0-0.7); EOSINOPHILS % (AUTO) 3.4 %; HGB - HEMOGLOBIN 14.2 g/dL (12.0-16.0); LYMPHOCYTES # (AUTO) 0.5 10^3/uL (1.5-3.5); LYMPHOCYTES % (AUTO) 11.9 %; MEAN CORPUSCULAR HEMOGLOBIN 30.7 pg (27.0-31.0); MEAN CORPUSCULAR HGB CONC 32.3 g/dL (32.0-36.0); MEAN PLATELET VOLUME 9.5 fL (7.9-10.8); MONOCYTES # (AUTO) 0.3 10^3/uL (0.0-1.0); NEUTROPHILS # (AUTO) 2.8 10^3/uL (1.5-6.6); NEUTROPHILS % (AUTO) 74.6 %; PLT - PLATELET COUNT 219 10^3/uL (130-450); RED BLOOD COUNT 4.63 10^6/uL (4.20-5.40); RED CELL DISTRIBUTION WIDTH 12.1 % (12.0-15.0); WHITE BLOOD COUNT 3.8 x10^3/uL (4.8-10.8)
[2024-05-16 16:51] LABS: ALBUMIN/GLOBULIN RATIO 1.3 (1.0-2.2); BILIRUBIN,TOTAL 0.5 mg/dL (0.2-1.0); CALCIUM 9.5 mg/dL (8.5-10.3); POTASSIUM 3.9 mmol/L (3.5-4.5)
== END 2024-05-16 16:19 | disposition home or self-care (01) ==
LOC: LAB 16:18
PROVIDERS: ATTEND Physician Assistant
DX: R10.13 Epigastric pain (principal)
CPT/HCPCS: 36415; 80053; 85025

== ENCOUNTER 2024-05-22 14:47 | Outpatient (CLI) | payer MEDICARE, OTHER | END 2024-05-22 14:48 | disposition home or self-care (01) | LOC: LAB 14:47 | PROVIDERS: ATTEND Physician Assistant | DX: R10.13 Epigastric pain (principal) | CPT/HCPCS: 83013 ==